=== PATIENT | male | born 1990 | race Two or more races ===

== ENCOUNTER 2023-06-27 18:52 | Inpatient (IN) | payer MEDICAID, OTHER ==
[~2023-06-27] VITALS: Ht 188 cm; Wt 113.5 kg
[2023-06-27 19:30] VITALS: PULSE 114; RESP 20; O2SAT 96
[2023-06-27 20:03] LABS: Albumin 4.5 g/dL (3.4-5.0); Calcium 9.8 mg/dL (8.5-10.1); Magnesium 2.4 mg/dL (1.6-2.6); Potassium 4.5 mmol/L (3.5-5.1)
[2023-06-27 20:07] LABS: BUN/Creatinine Ratio 11.4 (10.0-20.0); Bilirubin, Total 0.6 mg/dL (0.2-1.0); Total Protein 8.2 g/dL (6.4-8.2)
[2023-06-27 20:08] LABS: INR 1.13 (0.9-1.15); Partial Thromboplastin Time 27.6 SEC (24.5-34.5)
[2023-06-27] MEDS ORDERED: ONDANSETRON HCL 4 MG/2 ML VIAL IV ONE ×2 (20:15→21:30)
[2023-06-27] MEDS ORDERED: MORPHINE SULFATE 4 MG/ML SYR/VIAL IV ONE (20:15)
[2023-06-27 20:36] LABS: Basophils # (auto) 0 10 ^3/uL (0-0.2); Basophils % (auto) 0.3 % (0.0-2.0); Eosinophils # (auto) 0.1 10 ^3/uL (0-0.8); Hematocrit 47.2 % (41.0-53.0); Hemoglobin 15.7 g/dL (13.5-17.5); Lymphocytes # (auto) 1.8 10 ^3/uL (0.4-5.4); Lymphocytes % (auto) 17.9 % (10.0-50.0); Mean Corpuscular Hemoglobin 28.4 pg (28.0-32.0); Mean Corpuscular Hgb Conc. 33.2 g/dL (32.0-36.0); Mean Corpuscular Volume 85.5 fL (80.0-100.0); Monocytes # (auto) 0.7 10 ^3/uL (0-1.3); Monocytes % (auto) 7.4 % (0.0-12.0); Neutrophils # (auto) 7.2 10 ^3/uL (1.6-8.6); Neutrophils % (auto) 73.4 % (37.0-80.0); Red Blood Cells 5.52 10^6/uL (4.5-5.90); White Blood Cell 9.9 10^3/uL (4.4-10.8)
[2023-06-27] MEDS ORDERED: PANTOPRAZOLE 40 MG/10 ML VIAL INJ IV ONE (21:30)
[2023-06-27] MEDS ORDERED: HYDROmorphone HCL 2 MG/ML VL/or syr IV ONE (21:30)
[2023-06-27] MEDS ORDERED: SODIUM CHLORIDE 0.9% 1,000 ML IVB ONE (21:30)
[2023-06-27] MEDS ORDERED: SODIUM CHLORIDE 0.9% 1,000 ML IV ONE (21:30)
[2023-06-27] MEDS ORDERED: LORazepam 2MG/ML-1ML VIAL IV ONE (21:30)
[2023-06-27] MEDS ORDERED: ACETAMINOPHEN 325 MG TAB PO ONE (21:30)
[2023-06-27] MEDS ORDERED: IOHEXOL 300 MG/ML 100ML BOTTLE IJ ONE (22:21)
[2023-06-27 22:35] LABS: Blood Alcohol < 3.0 mg/dL (<10); Lipase 694 U/L (73-393); Magnesium 2.5 mg/dL (1.6-2.6)
[2023-06-28 02:55] LABS: Urine Bacteria FEW /hpf (None Seen); Urine Blood Negative /uL (Negative); Urine Hyaline Cast FEW /lpf (0 - 2); Urine Mucus FEW (None Seen); Urine WBC 1 /hpf (0 - 3)
[2023-06-28 02:58] LABS: Urine Specific Gravity 1.035 (1.001-1.035)
[2023-06-28 03:08] LABS: Alcohol, Urine < 3.0 mg/dL (0-10); Amphetamine Screen, Urine NEGATIVE (NEGATIVE); Barbiturate Scree,Urine NEGATIVE (NEGATIVE); Benzodiazephine Screen, Urine NEGATIVE (NEGATIVE); Cannabinoid Screen, Urine POSITIVE (NEGATIVE); Cocaine Screen, Urine NEGATIVE (NEGATIVE); Opiate Scree,Urine POSITIVE (NEGATIVE); Phencyclidine Screen, Urine NEGATIVE (NEGATIVE)
[2023-06-28] MEDS ORDERED: ONDANSETRON HCL 4 MG/2 ML VIAL IV ONE (03:30)
[2023-06-28] MEDS ORDERED: HYDROmorphone HCL 2 MG/ML VL/or syr IV ONE (03:30)
[2023-06-28] MEDS ORDERED: DOCUSATE SOD 100 MG CAP PO PRN (07:30)
[2023-06-28] MEDS ORDERED: ONDANSETRON HCL 4 MG/2 ML VIAL IV PRN (07:30)
[2023-06-28] MEDS ORDERED: ACETAMINOPHEN 325 MG TAB PO PRN (07:30)
[2023-06-28] MEDS ORDERED: HYDROmorphone HCL 2 MG/ML VL/or syr IV PRN (07:30)
[2023-06-28] MEDS ORDERED: NITROGLYCERIN 0.4 MG SL TAB SL PRN (07:30)
[2023-06-28 08:01] LABS: Basophils # (auto) 0.1 10 ^3/uL (0-0.2); Basophils % (auto) 0.8 % (0.0-2.0); Eosinophils # (auto) 0.2 10 ^3/uL (0-0.8); Eosinophils % (auto) 1.8 % (0.0-7.0); Hematocrit 44.2 % (41.0-53.0); Hemoglobin 14.6 g/dL (13.5-17.5); Lymphocytes # (auto) 2.2 10 ^3/uL (0.4-5.4); Lymphocytes % (auto) 21.4 % (10.0-50.0); Mean Corpuscular Hemoglobin 28.3 pg (28.0-32.0); Mean Corpuscular Hgb Conc. 33.1 g/dL (32.0-36.0); Mean Corpuscular Volume 85.7 fL (80.0-100.0); Monocytes % (auto) 9.1 % (0.0-12.0); Neutrophils % (auto) 66.9 % (37.0-80.0); Nucleated Red Blood Cells % 0.1 %; Red Blood Cells 5.16 10^6/uL (4.5-5.90); Red Cell Distribution Width 14.3 % (11.8-14.3); White Blood Cell 10.5 10^3/uL (4.4-10.8)
[2023-06-28 08:24] LABS: Albumin 3.9 g/dL (3.4-5.0); Calcium 8.6 mg/dL (8.5-10.1); Potassium 4.2 mmol/L (3.5-5.1)
[2023-06-28 08:30] LABS: BUN/Creatinine Ratio 12.2 (10.0-20.0); Bilirubin, Total 0.8 mg/dL (0.2-1.0); Total Protein 7.2 g/dL (6.4-8.2)
[2023-06-28] MEDS: D5W/SOD CHL 0.45% 1,000 ML IV SCH ×2 (09:28→20:50)
[2023-06-28] MEDS: MORPHINE SULFATE INJ 2 MG/ml SYRG IV PRN ×2 (09:29→18:12)
[2023-06-28] MEDS ORDERED: FAMOTIDINE (10MG/ML) 2ML VL IV SCH (10:00)
[2023-06-28] MEDS: HYDROcodone-ACET 5/325MG TAB PO PRN ×2 (15:51→21:18)
[2023-06-28 19:52] VITALS: PULSE 82; RESP 15; O2SAT 98
[2023-06-28 20:00] VITALS: BP 126/74; PULSE 82; RESP 16; TEMP 98.4; O2SAT 97
== END 2023-06-28 21:23 | disposition left against medical advice (07) | DRG 282 ==
LOC: EDBD 18:52 → ER 18:52 → TELE 06-28 07:40
PROVIDERS: ADMIT Nurse Practitioner Family; ATTEND Nurse Practitioner Family
DX: K85.90 Acute pancreatitis without necrosis or infection, unspecified (principal); R04.2 Hemoptysis; E86.0 Dehydration; F12.10 Cannabis abuse, uncomplicated; Z53.29 Procedure and treatment not carried out because of patient's decision for other reasons; F31.9 Bipolar disorder, unspecified; R07.89 Other chest pain
CPT/HCPCS: 36415; 71045; 76705; 80053; 80307; 80320; 81001; 83605; 83690; 83735; 83880; 84443; 84484; 85025; 85610; 85730; 87086; 93005; 96361; 96374; 96375; 96376; C9113; G0378; J2405; J3490